=== PATIENT | female | born 1940 | race Caucasian/White ===

== ENCOUNTER → 2016-10-09 | Outpatient (CLI) | payer MEDICARE, BC | LOC: RAD 19:38 | PROVIDERS: ATTEND Physician Assistant | DX: M54.41 Lumbago with sciatica, right side (principal) | CPT/HCPCS: 72148 ==

== ENCOUNTER → 2016-10-18 | Outpatient (CLI) | payer BC, MEDICARE ==
--- NOTE | 2016-10-18 18:54 | XCELERA REPORT ---
[address] [address] Transthoracic Echocardiogram Report Name: JOSEFA GARCES Age: 75 yrs Gender: Female : 1940 Patient Status: Outpatient Patient Location: Study Date: 10/18/2016 10:11 AM Height: 61 in Weight: 151 lb BSA: 1.7 m2 Procedure: A two-dimensional transthoracic echocardiogram with color flow and Doppler was performed. Study Quality: Fair. Reason For Study: CP R07.9 History: Chest pain. Ordering Physician: TIARA NEGRETE Performed By: Ricardo Carrillo Interpretation Summary The left ventricle is normal in size. There is normal left ventricular wall thickness. LV EF is 60% Left ventricular systolic function is normal. The left ventricular wall motion is normal. There is no thrombus. The left atrial size is normal. There is no evidence of mitral valve prolapse. There is no mitral valve stenosis. There is a mild amount of mitral regurgitation There is no aortic valvular vegetation. There is no aortic valve stenosis There is no LVOT obstruction. There is a trace amount of aortic regurgitation There is no tricuspid stenosis. There is a mild amount of tricuspid regurgitation Right ventricular systolic pressure is normal. RVSP is 30 mm of Hg , with RA mean of 5. There is no pericardial effusion. MMode/2D Measurements \T\ Calculations RVDd: 2.8 cm LVIDd: 4.6 cm FS: 32.5 % Ao root diam: 2.9 cm IVSd: 0.83 cm LVIDs: 3.1 cm EDV(Teich): 97.5 ml LVPWd: 0.80 cm ESV(Teich): 38.1 ml Ao root area: 6.8 cm2 EF(Teich): 60.9 % LA dimension: 2.8 cm Doppler Measurements \T\ Calculations MV E max ibrahima: MV P1/2t max ibrahima: Ao V2 max: LV V1 max P.9 cm/sec 85.2 cm/sec 101.8 cm/sec 1.5 mmHg MV A max ibrahima: MV P1/2t: 55.7 msec Ao max PG: LV V1 max: 75.6 cm/sec 4.1 mmHg 62.1 cm/sec MV E/A: 1.1 MVA(P1/2t): 4.0 cm2 MV dec slope: 448.4 cm/sec2 PA V2 max: PI end-d ibrahima: TR max ibrahima: 60.2 cm/sec 97.0 cm/sec 248.9 cm/sec PA max PG: TR max P.5 mmHg 24.8 mmHg Left Ventricle The left ventricle is normal in size. There is normal left ventricular wall thickness. LV EF is 60%. Left ventricular systolic function is normal. Doppler measurements suggest normal left ventricular diastolic function. The left ventricular wall motion is normal. There is no thrombus. There is no ventricular septal defect visualized. Right Ventricle The right ventricle is normal in size and function. Atria The right atrium is normal. The left atrial size is normal. The interatrial septum is intact with no evidence for an atrial septal defect. Mitral Valve There is no evidence of mitral valve prolapse. There is no vegetation seen on the mitral valve. There is no mitral valve stenosis. There is a mild amount of mitral regurgitation. Aortic Valve There is no aortic valvular vegetation. There is no aortic valve stenosis. There is no LVOT obstruction. There is a trace amount of aortic regurgitation. Tricuspid Valve There is no tricuspid stenosis. There is a mild amount of tricuspid regurgitation. Right ventricular systolic pressure is normal. RVSP is 30 mm of Hg , with RA mean of 5. Pulmonic Valve There is no pulmonic valvular stenosis. There is a mild amount of pulmonic regurgitation. Great Vessels The aortic root is normal size. Effusions There is no pericardial effusion. : TIARA NEGRETE > Tiara Negrete
== END ==
LOC: SP 09:56
PROVIDERS: ATTEND Specialist
DX: R07.9 Chest pain, unspecified (principal)
CPT/HCPCS: 93306